=== PATIENT | female | born 1980 | race Two or more races ===

== ENCOUNTER 2020-03-05 10:18 | Inpatient (IN) | payer OTHER ==
[~2020-03-05] VITALS: Ht 160 cm; Wt 68.5 kg
[2020-03-05 10:39] LABS: Basophils # (auto) 0.1 10 ^3/uL (0-0.2); Basophils % (auto) 0.7 % (0.0-2.0); Eosinophils # (auto) 0.1 10 ^3/uL (0-0.8); Eosinophils % (auto) 1.8 % (0.0-7.0); Hematocrit 39.3 % (36.0-46.0); Hemoglobin 13.4 g/dL (12.2-16.2); Lymphocytes # (auto) 1.4 10 ^3/uL (0.4-5.4); Lymphocytes % (auto) 18.8 % (10.0-50.0); Mean Corpuscular Hemoglobin 30.1 pg (28.0-32.0); Mean Corpuscular Volume 88.6 fL (80.0-100.0); Monocytes # (auto) 0.7 10 ^3/uL (0-1.3); Monocytes % (auto) 8.6 % (0.0-12.0); Neutrophils # (auto) 5.4 10 ^3/uL (1.6-8.6); Neutrophils % (auto) 70.1 % (37.0-80.0); Platelet Count (auto) 189 10^3/uL (140-450); Red Blood Cells 4.44 10^6/uL (4.0-5.20); Red Cell Distribution Width 12.7 % (11.8-14.3); White Blood Cell 7.7 10^3/uL (4.4-10.8)
[2020-03-05 10:54] LABS: Albumin 3.5 g/dL (3.4-5.0); Calcium 8.9 mg/dL (8.5-10.1); Potassium 3.5 mmol/L (3.5-5.1)
[2020-03-05 10:58] LABS: BUN/Creatinine Ratio 18.2; Bilirubin, Total 0.6 mg/dL (0.2-1.0); Total Protein 8.6 g/dL (6.4-8.2)
[2020-03-05] MEDS ORDERED: PIPERACILLIN-TAZOB 3.375GM 100 ML IV ONE (11:30)
[2020-03-05] MEDS ORDERED: ONDANSETRON HCL 4 MG/2 ML VIAL IV PRN (11:30)
[2020-03-05] MEDS ORDERED: MORPHINE SULF INJ 2 MG/ML SYRINGE 1ML IV PRN ×2 (11:30)
[2020-03-05] MEDS ORDERED: NITROGLYCERIN 0.4 MG SL TAB SL PRN (11:30)
[2020-03-05 12:00] VITALS: BP 122/70
[2020-03-05] MEDS ORDERED: levoFLOXacin 500MG 100 ML IV ONE (12:00)
--- NOTE | 2020-03-05 12:12 | NUR ---
MS admit from ER MARK OWEN admitted to tele/MS after SBAR received. Patient oriented to STEPHANIE HANKS, primary RN, unit, room, bed, and unit policies regarding patient care and visiting hours. Patient weighed by bedscale and encouraged to call if they need something. All questions and concerns addressed, patient verbalized understanding.
[2020-03-05 12:14] LABS: INR 1.08 (0.9-1.15); Partial Thromboplastin Time 32.5 sec (23.64-32.05)
[2020-03-05] MEDS: SOD CHL 0.9%/ KCL 20MEQ 1,000 ML IV SCH (13:41)
[2020-03-05] MEDS: metroNIDAZOLE 500MG/100ML 100 ML IV SCH ×2 (13:41→22:00)
[2020-03-05 16:44] VITALS: BP 88/57
[2020-03-05] MEDS ORDERED: IBUP800T24 PO (17:30)
[2020-03-05] MEDS ORDERED: POLY33504 PO (17:30)
[2020-03-05] MEDS ORDERED: OMEP20TA PO (17:30)
[2020-03-05] MEDS ORDERED: ACET-1156 PO (17:30)
[2020-03-05 22:00] VITALS: BP 120/65
[2020-03-06] MEDS: SOD CHL 0.9%/ KCL 20MEQ 1,000 ML IV SCH ×3 (01:42→17:30)
[2020-03-06] MEDS: HYDROmorphone HCL 2 MG/ML VL IV PRN ×2 (01:42→23:00)
--- NOTE | 2020-03-06 03:48 | NUR ---
Received report from Yohannes Espinoza to assume care.
[2020-03-06 05:00] VITALS: BP 109/63
[2020-03-06] MEDS: metroNIDAZOLE 500MG/100ML 100 ML IV SCH ×3 (05:44→22:00)
[2020-03-06 06:00] LABS: Basophils # (auto) 0 10 ^3/uL (0-0.2); Basophils % (auto) 0.4 % (0.0-2.0); Eosinophils # (auto) 0 10 ^3/uL (0-0.8); Eosinophils % (auto) 0.2 % (0.0-7.0); Hematocrit 37.2 % (36.0-46.0); Hemoglobin 12.6 g/dL (12.2-16.2); Lymphocytes # (auto) 0.9 10 ^3/uL (0.4-5.4); Lymphocytes % (auto) 12.3 % (10.0-50.0); Mean Corpuscular Hemoglobin 30.4 pg (28.0-32.0); Mean Corpuscular Volume 89.6 fL (80.0-100.0); Monocytes # (auto) 0.6 10 ^3/uL (0-1.3); Monocytes % (auto) 7.4 % (0.0-12.0); Neutrophils # (auto) 6.1 10 ^3/uL (1.6-8.6); Neutrophils % (auto) 79.7 % (37.0-80.0); Platelet Count (auto) 176 10^3/uL (140-450); Red Blood Cells 4.15 10^6/uL (4.0-5.20); Red Cell Distribution Width 12.5 % (11.8-14.3); White Blood Cell 7.6 10^3/uL (4.4-10.8)
[2020-03-06 06:33] LABS: Potassium 3.6 mmol/L (3.5-5.1)
[2020-03-06 06:44] LABS: Albumin 3.2 g/dL (3.4-5.0); BUN/Creatinine Ratio 18.1; Bilirubin, Total 0.6 mg/dL (0.2-1.0); Calcium 8.2 mg/dL (8.5-10.1); Total Protein 7.7 g/dL (6.4-8.2)
[2020-03-06 09:00] VITALS: BP 118/75
[2020-03-06] MEDS: PANTOPRAZOLE 40 MG/10 ML VIAL INJ IV SCH (09:34)
[2020-03-06] MEDS: levoFLOXacin 500MG 100 ML IV SCH (09:34)
[2020-03-06 11:28] LABS: Urine Bacteria FEW /hpf (None Seen); Urine Blood Negative /uL (Negative); Urine Mucus FEW (None Seen); Urine Specific Gravity 1.022 (1.001-1.035); Urine WBC 6 /hpf (0 - 5)
[2020-03-06 13:00] VITALS: BP 123/71
[2020-03-06 17:03] VITALS: BP 113/68
--- NOTE | 2020-03-06 17:36 | NUR ---
Patient removed IV Patient states she walked to the bathroom and pulled IV out accidentally. IV noted out on the bed with catheter intact. Pressure dressing applied. No trauma to the site noted. Will insert new IV.
[2020-03-06] MEDS: HYDROcodone-ACET 5/325MG TAB PO PRN (19:29)
--- NOTE | 2020-03-06 19:35 | NUR ---
Opening Shift Note Assumed care of patient, AAOx4. No S/S of distress/SOB or pain. On room air and ambulatory. Patient is Lao speaking. Bed in lowest locked position, side rails up x2, call light within reach. Instructed on POC and to call for assist PRN, will continue to monitor for changes Q1hr and PRN.
[2020-03-06 22:00] VITALS: BP 102/66
--- NOTE | 2020-03-07 | NUR ---
PATIENT NPO FOR SURGERY TODAY
[2020-03-07] MEDS: SOD CHL 0.9%/ KCL 20MEQ 1,000 ML IV SCH ×3 (03:30→23:30)
[2020-03-07 05:00] VITALS: BP 107/36
[2020-03-07 05:41] LABS: Basophils # (auto) 0 10 ^3/uL (0-0.2); Basophils % (auto) 0.6 % (0.0-2.0); Eosinophils # (auto) 0.2 10 ^3/uL (0-0.8); Eosinophils % (auto) 2.3 % (0.0-7.0); Hematocrit 36.7 % (36.0-46.0); Hemoglobin 12.4 g/dL (12.2-16.2); Lymphocytes # (auto) 1.8 10 ^3/uL (0.4-5.4); Lymphocytes % (auto) 26.3 % (10.0-50.0); Mean Corpuscular Hemoglobin 30.2 pg (28.0-32.0); Mean Corpuscular Hgb Conc. 33.7 g/dL (32.0-36.0); Mean Corpuscular Volume 89.7 fL (80.0-100.0); Monocytes # (auto) 0.7 10 ^3/uL (0-1.3); Monocytes % (auto) 10.1 % (0.0-12.0); Neutrophils # (auto) 4.2 10 ^3/uL (1.6-8.6); Neutrophils % (auto) 60.7 % (37.0-80.0); Platelet Count (auto) 201 10^3/uL (140-450); Red Cell Distribution Width 12.7 % (11.8-14.3); White Blood Cell 6.9 10^3/uL (4.4-10.8)
[2020-03-07 05:56] LABS: BUN/Creatinine Ratio 6.8; Calcium 8.2 mg/dL (8.5-10.1); Potassium 3.7 mmol/L (3.5-5.1)
[2020-03-07 05:59] LABS: Bilirubin, Total 0.6 mg/dL (0.2-1.0); Total Protein 7.6 g/dL (6.4-8.2)
[2020-03-07] MEDS: metroNIDAZOLE 500MG/100ML 100 ML IV SCH ×3 (06:07→21:29)
[2020-03-07] MEDS ORDERED: LIDOCAINE 1% HCL (LOCAL ANESTH.) INJ 20ML MDV ONE (06:48)
[2020-03-07] MEDS ORDERED: SUCCINYLCHOLINE CHLORIDE 20 MG/ML 10ML VIAL IV ONE (06:49)
--- NOTE | 2020-03-07 06:54 | NUR ---
PATIENT TAKEN TO PRE OP BY THIS NURSE AND RAMILA DESAI. NO S/S OF DISTRESS NOTED. WILL ENDORSE CARE TO DAYSHIFT RN.
[2020-03-07] MEDS ORDERED: MIDAZOLAM HCL 1MG/1ML-2 ML VIAL ONE (06:58)
[2020-03-07] MEDS ORDERED: MEPERIDINE HCL (25 MG/ML) 1ML VIAL ONE (06:58)
[2020-03-07] MEDS ORDERED: fentaNYL CITRATE 100 MCG/2 ML VL ONE (06:58)
[2020-03-07] MEDS ORDERED: ROCURONIUM 10MG/ML 10ML VIAL IV ONE (06:59)
[2020-03-07] MEDS ORDERED: ONDANSETRON HCL 4 MG/2 ML VIAL ONE (06:59)
[2020-03-07] MEDS ORDERED: SODIUM CHLORIDE LOCK 10 ML ONE (06:59)
[2020-03-07] MEDS ORDERED: PROPOFOL 10 MG/ML 20 ML IV ONE (06:59)
--- NOTE | 2020-03-07 07:00 | NUR ---
REPORT RECEIVED, PT LEFT TO OR BY BRIQUETTER OPERATOR NURSE VIA HOSPITAL BED
[2020-03-07] MEDS ORDERED: ceFAZolin 1GM/50ML 50 ML IV ONE (07:04)
[2020-03-07] MEDS ORDERED: POVIDONE IODINE 10 % TOPICAL OINT 30GM TOP ONE (07:07)
[2020-03-07] MEDS ORDERED: fentaNYL CITRATE 100 MCG/2 ML VL IV PRN (07:30)
[2020-03-07] MEDS ORDERED: METOCLOPRAMIDE HCL 5MG/ml INJ 2ml VIAL IV PRN (07:30)
[2020-03-07] MEDS ORDERED: MORPHINE SULFATE 4 MG/ML SYR/VIAL IV PRN (07:30)
[2020-03-07] MEDS ORDERED: GLYCOPYRROLATE 0.2 MG/ML 1ML VIAL ONE (07:56)
[2020-03-07] MEDS ORDERED: NEOSTIGMINE 1 MG/ML INJ (10mg/10ML VIAL) ONE (07:56)
[2020-03-07] MEDS: HYDROmorphone HCL 2 MG/ML VL IV PRN ×4 (08:49→16:49)
--- NOTE | 2020-03-07 09:15 | NUR ---
BHUMI MCGRATH FROM RECOVERY ROOM CALLED ME WITH REPORT, ALONG WITH VS AND INVERTED T WAVE
--- NOTE | 2020-03-07 09:35 | NUR ---
PT ARRIVE BACK TO HER ROOM VIA HOSPITAL BED WITH BHUMI MCGRATH, PT CONTINUE SLEEPY, RESPOND TO TOUCH AND NAME, OXYGEN 1 L NC, KIYA DRAINAGE NOTED AT RT UPPER ABDOMEN, ABDOMEN BINDER NOTED
[2020-03-07] MEDS: levoFLOXacin 500MG 100 ML IV SCH (09:45)
[2020-03-07] MEDS: PANTOPRAZOLE 40 MG/10 ML VIAL INJ IV SCH (09:45)
--- NOTE | 2020-03-07 09:45 | NUR ---
PATIENT WAS OUT OF ROOM FOR 0900 VITALS.
--- NOTE | 2020-03-07 10:00 | NUR ---
DR WEST AT [facility] FOLLOWING UP ON PT, AWARE OF PT" INVERTED T WAVE, SAID PT DENIES ANY CHEST PAIN
[2020-03-07 10:30] VITALS: BP 123/76
[2020-03-07 13:00] VITALS: BP 114/82
--- NOTE | 2020-03-07 13:08 | NUR ---
Nutrition Assessment Notes Please refer to link for full assessment notes. Est Energy needs: [id number] kcals (23-25 kcal/kgBW) Est Protein needs: 55-69 gms/day (0.8-1.0 gm/kgBW) Will continue to monitor and reassess prn. Addendum: 03/07/20 at [address] Amended: Links added.
[2020-03-07 17:00] VITALS: BP 113/72
--- NOTE | 2020-03-07 18:13 | NUR ---
PT CONTINUE STABLE, COTINUE MONITORING
[2020-03-07 20:00] VITALS: BP 114/82
--- NOTE | 2020-03-07 20:30 | NUR ---
OPENING SHIFT NOTE Assumed care of patient who is A&O x4. Currently on 2L NC with no s/s of distress. denies pain at this time. Abdominal binder in place. Two midline incisions present; dressings are CDI. KIYA drain in left upper quadrant. Small amount of sanguineous drainage noted on dressing and circled. 25ml sanguineous fluid emptied from drain. Patient is ambulatory at baseline. Assisted onto bedside commode. tolerated well. POC discussed and all questions answered. Bed is in low locked position and side rails up x2. Call light within reach and patient encouraged to call for assistance when needed. Will continue to monitor for changes PRN.
[2020-03-07 21:55] VITALS: BP 114/82
[2020-03-07] MEDS: HYDROcodone-ACET 5/325MG TAB PO PRN (22:58)
--- NOTE | 2020-03-08 04:27 | NUR ---
IV REMOVAL/INSERTION IV to right AC leaking. IV DC'd with clean sterile technique, catheter fully intact. Pressure dressing applied to site. Patient tolerated well. IV insertion IV access obtained, via clean sterile technique by inserting 20 gauge catheter at right forearm after 1 attempt. IV secured properly. No trauma to site. Patient tolerated well.
[2020-03-08 05:24] LABS: Basophils # (auto) 0 10 ^3/uL (0-0.2); Basophils % (auto) 0.5 % (0.0-2.0); Eosinophils # (auto) 0.1 10 ^3/uL (0-0.8); Eosinophils % (auto) 2.2 % (0.0-7.0); Hematocrit 33.7 % (36.0-46.0); Hemoglobin 11.3 g/dL (12.2-16.2); Lymphocytes # (auto) 1.7 10 ^3/uL (0.4-5.4); Lymphocytes % (auto) 29.2 % (10.0-50.0); Mean Corpuscular Hemoglobin 29.9 pg (28.0-32.0); Mean Corpuscular Hgb Conc. 33.5 g/dL (32.0-36.0); Mean Corpuscular Volume 89.4 fL (80.0-100.0); Monocytes # (auto) 0.6 10 ^3/uL (0-1.3); Monocytes % (auto) 10.3 % (0.0-12.0); Neutrophils # (auto) 3.4 10 ^3/uL (1.6-8.6); Neutrophils % (auto) 57.8 % (37.0-80.0); Nucleated Red Blood Cells % 0.1 %; Platelet Count (auto) 160 10^3/uL (140-450); Red Blood Cells 3.77 10^6/uL (4.0-5.20); Red Cell Distribution Width 12.6 % (11.8-14.3)
[2020-03-08] MEDS: metroNIDAZOLE 500MG/100ML 100 ML IV SCH (05:41)
[2020-03-08 05:42] LABS: Albumin 2.7 g/dL (3.4-5.0); Calcium 7.8 mg/dL (8.5-10.1); Potassium 3.8 mmol/L (3.5-5.1)
[2020-03-08 05:47] LABS: BUN/Creatinine Ratio 6.7; Bilirubin, Total 0.3 mg/dL (0.2-1.0); Total Protein 5.9 g/dL (6.4-8.2)
[2020-03-08 05:57] VITALS: BP 110/70
--- NOTE | 2020-03-08 07:01 | NUR ---
KIYA DRAIN OUTPUT total of 65ml of serosanguineous drainage emptied from KIYA drain this shift.
--- NOTE | 2020-03-08 08:00 | NUR ---
ASSESSMENT NOTE PT IS ALERT ORIENTED X4, RESTING IN BED COMFORTABLY, APPEAR MAUCH BETTER COMPARING YESTERDAY, PAIN IS MORE LESS, TOLERATING DIET WELL, SELF REPOSITION NEEDED, CALL LIGHT WITHIN REACH
[2020-03-08] MEDS: HYDROcodone-ACET 5/325MG TAB PO PRN (08:45)
[2020-03-08] MEDS: levoFLOXacin 500MG 100 ML IV SCH (08:58)
[2020-03-08] MEDS: PANTOPRAZOLE 40 MG/10 ML VIAL INJ IV SCH (08:58)
[2020-03-08 09:00] VITALS: BP 101/61
[2020-03-08] MEDS: SOD CHL 0.9%/ KCL 20MEQ 1,000 ML IV SCH (09:06)
--- NOTE | 2020-03-08 09:30 | NUR ---
INCENTIVE SPIROMETER EDUCATE PT HOW TO USE IT AND WHY, PT VERBALIS UNDERSTANDING, ABLE TO DEMONSTRATED BACK
--- NOTE | 2020-03-08 10:45 | NUR ---
ASSISTING PT TO AMBULATE IN THE HALLWAYS
--- NOTE | 2020-03-08 11:10 | NUR ---
DR WEST AT BED SIDE FOLLOWING UP ON PT
[2020-03-08 13:00] VITALS: BP 106/72
--- NOTE | 2020-03-08 14:15 | NUR ---
Discharge instructions given as ordered. Encourage to follow up with PMD as instructed. All questions and concerns addressed. Patient verbalized understanding. Medication reconciliation form completed and copy given to patient. Home medications held in Pharmacy returned to patient. IV removed with catheter intact, pressure dressing applied, Patient taken to vehicle via wheelchair with all personal belongings, accompanied by staff to the family vehicle. No distress noted at time of departure.
== END 2020-03-08 14:14 | disposition home or self-care (01) | DRG 263 ==
LOC: ER 10:18 → OVERFLOW 10:19 → CENTRAL 12:40
PROVIDERS: ADMIT Nurse Practitioner Acute Care; ATTEND Internal Medicine
PROC: 3E013GC Introduction of Other Therapeutic Substance into Subcutaneous Tissue, Percutaneous Approach (ICD-10-PCS; 2020-03-07)
PROC: 0FT44ZZ Resection of Gallbladder, Percutaneous Endoscopic Approach (ICD-10-PCS; principal; 2020-03-07 07:20)
DX: K80.00 Calculus of gallbladder with acute cholecystitis without obstruction (principal); K21.9 Gastro-esophageal reflux disease without esophagitis; K29.70 Gastritis, unspecified, without bleeding; K82.8 Other specified diseases of gallbladder
CPT/HCPCS: 36415; 74176; 76705; 80053; 81001; 81025; 83036; 83605; 83690; 85025; 85610; 85730; 86850; 86900; 86901; 87040; 96365; 96367; C9113; G0378; J0330; J0690; J1956; J2001; J2250; J2405; J2543; J2704; J3490